=== PATIENT | male | born 1990 | race Two or more races ===

== ENCOUNTER 2024-04-10 07:03 | Emergency (ER) | payer MEDICAID, OTHER ==
[~2024-04-10] VITALS: Ht 170.2 cm; Wt 111.7 kg
[2024-04-10] MEDS ORDERED: CEPH500C PO (07:54)
[2024-04-10] MEDS ORDERED: IBUP-1456 PO (07:54)
[2024-04-10 08:01] VITALS: BP 112/74; PULSE 60; RESP 18; TEMP 98.2; O2SAT 98
== END 2024-04-10 08:04 | disposition home or self-care (01) ==
LOC: ER 07:03
DX: S70.362A Insect bite (nonvenomous), left thigh, initial encounter (principal); Z79.899 Other long term (current) drug therapy; W57.XXXA Bitten or stung by nonvenomous insect and other nonvenomous arthropods, initial encounter; Y93.89 Activity, other specified; Y92.89 Other specified places as the place of occurrence of the external cause; Y99.8 Other external cause status